=== PATIENT | female | born 1970 | race Caucasian/White ===

== ENCOUNTER 2020-12-07 14:51 | Emergency (ER) | payer BC ==
[2020-12-07 16:14] LABS: RED BLOOD COUNT 4.56 M/UL (4.00-5.10); WHITE BLOOD COUNT 8.6 K/UL (4.5-11.0)
[2020-12-07] MEDS ORDERED: PERCOCET 5/325 T1 EA PO ×2 (18:24→18:47)
== END 2020-12-07 19:00 | disposition home or self-care (01) ==
LOC: ER1 14:51
PROVIDERS: Family Medicine
DX: N13.2 Hydronephrosis with renal and ureteral calculous obstruction (principal); I10 Essential (primary) hypertension
CPT/HCPCS: 80053; 81001; 83690; 85025; 96374; 96375; 99284; J1885; J2405; J7030; Q9967